=== PATIENT | female | born 1985 | race African-American/Black ===

== ENCOUNTER 2018-02-10 03:07 | Emergency (ER) | payer OTHER ==
[~2018-02-10] VITALS: Ht 167.6 cm; Wt 63.5 kg
[2018-02-10] VITALS (13 sets, daily range): BP systolic 91–121; BP diastolic 47–88
[2018-02-10] MEDS ORDERED: Haloperidol 5mg/ml Inj IM ONE (03:30)
[2018-02-10] MEDS ORDERED: LORazepam Inj 2mg/ml 1ml IM ONE (03:30)
[2018-02-10 04:16] LABS: HEMATOCRIT 36.6 % (42.0-52.0); HEMOGLOBIN 12.7 G/DL (14.2-18.0); MEAN CORPUSCULAR VOLUME 86 FL (80-99); PLATELET COUNT 252 K/UL (150-450); RED BLOOD COUNT 4.25 M/UL (4.70-6.10); RED CELL DISTRIBUTION WIDTH 12.5 % (11.6-14.8); WHITE BLOOD COUNT 10.8 K/UL (4.8-10.8)
[2018-02-10 04:30] LABS: ALANINE AMINOTRANSFERASE 14 U/L (12-78); ALBUMIN 3.9 G/DL (3.4-5.0); ALBUMIN/GLOBULIN RATIO 0.9 (1.0-2.7); ALKALINE PHOSPHATASE 89 U/L (46-116); ANION GAP 15 mmol/L (5-15); ASPARTATE AMINO TRANSFERASE 21 U/L (15-37); BILIRUBIN,TOTAL 0.3 MG/DL (0.2-1.0); BLOOD UREA NITROGEN 12 mg/dL (7-18); CALCIUM 9.3 MG/DL (8.5-10.1); CARBON DIOXIDE 22 MMOL/L (21-32); CHLORIDE 104 MMOL/L (98-107); CREATININE 1.1 MG/DL (0.55-1.30); SODIUM 140 MMOL/L (136-145)
[2018-02-10 04:30] LABS: APPEARANCE,URINE CLEAR; BILIRUBIN, URINE NEGATIVE (NEGATIVE); COLOR,URINE PALE YELLOW; GLUCOSE, URINE (UA) 4+ (NEGATIVE); KETONES,URINE 4+ (NEGATIVE); LEUKOCYTE ESTERASE ,URINE 2+ (NEGATIVE); NITRITE,URINE NEGATIVE (NEGATIVE); PH,URINE 5 (4.5-8.0); PROTEIN,URINE 2+ (NEGATIVE); UROBILINOGEN,URINE NORMAL MG/DL (0.0-1.0)
[2018-02-10 04:33] LABS: POTASSIUM 2.7 MMOL/L (3.5-5.1)
[2018-02-10] MEDS ORDERED: LORazepam Inj 2mg/ml 1ml IV ONE (05:00)
--- NOTE | 2018-02-10 06:24 | Emergency Room Report ---
History of Present Illness General Chief Complaint: Behavioral Complaint Source: Patient, EMS Present Illness HPI Is a 33-year-old female with a psych history. She presents as altered mental status and aggressive bizarre behavior. Per EMS, neighbor call 911 because she was yelling and screaming. There was a "boyfriend" at the scene who doesn't even know her name. She laid on calmed down and said that she spells gun Depakote and Zyprexa but has not been taking it. She was admitted to a psychiatric unit few months ago in [place]. History is limited in patient because of her agitation. Initially she came in as a [place] with police restraint Allergies: Coded Allergies: No Known Allergies (Unverified , 02/10/18) Patient History Past Medical History: see triage record, old chart reviewed, psych hx Past Surgical History: other Pertinent Family History: none Social History: Denies: smoking, alcohol use Now: No Immunizations: other Reviewed Nursing Documentation: PMH: Agreed; PSxH: Agreed Nursing Documentation-PMH Past Medical History: No Stated History Review of Systems All Other Systems: limited - is limited secondary to pt's condition Physical Exam Vital Signs Date Time Temp Pulse Resp B/P (MAP) Pulse Ox O2 Delivery O2 Flow Rate FiO2 02/10/18 03:02 98.0 150 20 146/87 96 Room Air 98.1 tachycardia Sp02 EP Interpretation: reviewed, normal General Appearance: well appearing, no apparent distress, other - agitated Head: normocephalic, atraumatic Eyes: bilateral eye PERRL, bilateral eye EOMI ENT: hearing grossly normal, normal pharynx Neck: full range of motion, supple, no meningismus Respiratory: chest non-tender, lungs clear, normal breath sounds Cardiovascular #1: regular rate, rhythm, no murmur Gastrointestinal: normal bowel sounds, non tender, no mass, no organomegaly, no bruit, non-distended Musculoskeletal: back normal, gait/station normal, normal range of motion Psychiatric: other - agitated, yelling Skin: warm/dry Medical Decision Making Restraint Attestation I, Amarjit Lamar MD, have personally evaluated this patient. Laboratory tests have been reviewed and addressed accordingly. The patient is deemed to present a danger to themselves and/or others. This is based on the exam, history ( provided by patient, EMS/[employer] and/or family) and observed or reported behavior. Attempts for non-invasive measures have been considered and/or attempted, however, have been futile. It is in the best interest of the nursing staff, the patient, and others involved in this patient's care that behavioral restraints be applied. Patient evaluation reveals the following:pt is calm and sleeping comfortably. Diagnostic Impression: Primary Impression: Psychosis Qualified Codes: F23 - Brief psychotic disorder ER Course Patient with psychosis. Restraint initiated but able to be removed. heart rate normalized. Her hypokalemia is probably secondary to hyperventilation. Will reassess when she is more awake. I will sign this patient out to Dr. Vera. Lab Results Impression labs with hypokalemia Last Vital Signs Date Time Temp Pulse Resp B/P (MAP) Pulse Ox O2 Delivery O2 Flow Rate FiO2 02/10/18 06:13 98.4 94 16 101/66 100 Room Air 98.4 Status: improved Condition: Stable Referrals: NOT CHOSEN [facility]/,REFERRING (PCP) AMARJIT LAMAR M.D. Feb 10, 2018 06:24
[2018-02-10 07:38] LABS: ANION GAP 12 mmol/L (5-15); BLOOD UREA NITROGEN 9 mg/dL (7-18); CALCIUM 8.3 MG/DL (8.5-10.1); CARBON DIOXIDE 25 MMOL/L (21-32); CHLORIDE 106 MMOL/L (98-107); CREATININE 0.8 MG/DL (0.55-1.30); POTASSIUM 3.4 MMOL/L (3.5-5.1); SODIUM 143 MMOL/L (136-145)
--- NOTE | 2018-02-10 14:26 | Emergency Room Report ---
Physical Exam Vital Signs Date Time Temp Pulse Resp B/P (MAP) Pulse Ox O2 Delivery O2 Flow Rate FiO2 02/10/18 03:02 98.0 150 20 146/87 96 Room Air 98.1 Medical Decision Making Diagnostic Impression: Primary Impression: Psychosis Qualified Codes: F29 - Unspecified psychosis not due to a substance or known physiological condition ER Course Hospital Course 33 yo F presents to ED with agitated behavior. Clinical course Patient initially seen and evaluated by Dr Lamar; please see his note for full history and physical Labs reviewed-K 2.7, no leukocytosis, hemoglobin/hematocrit stable, tox panel negative K repleted Patient was given sedation last night. Patient slept during the day. Is now more awake alert oriented. Family at bedside. Patient denies any drug use. Episode could be related to some transient psychosis, possible drug use. She is not a danger to herself or others at this time. Patient can be safely discharged to home. No history of mental illness. We will give mental health referrals i. I feel this is a highly complex case requiring extensive working including EKG/Rhythm strip, Xray/CT/US, Blood/urine lab work, repeat exams while in ED, and administration of strong opiates/narcotics for pain control, admission to hospital or close patient follow up. Diagnosis - psychosis Stable and discharged to home. Followup with PMD. Return to ED if symptoms recur or worsen Labs Test 02/10/18 04:00 02/10/18 04:20 02/10/18 06:57 White Blood Count 10.8 K/UL (4.8-10.8) Red Blood Count 4.25 M/UL (4.70-6.10) Hemoglobin 12.7 G/DL (14.2-18.0) Hematocrit 36.6 % (42.0-52.0) Mean Corpuscular Volume 86 FL (80-99) Mean Corpuscular Hemoglobin 29.8 PG (27.0-31.0) Mean Corpuscular Hemoglobin Concent 34.5 G/DL (32.0-36.0) Red Cell Distribution Width 12.5 % (11.6-14.8) Platelet Count 252 K/UL (150-450) Mean Platelet Volume 7.8 FL (6.5-10.1) Neutrophils (%) (Auto) % (45.0-75.0) Lymphocytes (%) (Auto) % (20.0-45.0) Monocytes (%) (Auto) % (1.0-10.0) Eosinophils (%) (Auto) % (0.0-3.0) Basophils (%) (Auto) % (0.0-2.0) Sodium Level 140 MMOL/L (136-145) 143 MMOL/L (136-145) Potassium Level 2.7 MMOL/L (3.5-5.1) 3.4 MMOL/L (3.5-5.1) Chloride Level 104 MMOL/L (98-107) 106 MMOL/L (98-107) Carbon Dioxide Level 22 MMOL/L (21-32) 25 MMOL/L (21-32) Anion Gap 15 mmol/L (5-15) 12 mmol/L (5-15) Blood Urea Nitrogen 12 mg/dL (7-18) 9 mg/dL (7-18) Creatinine 1.1 MG/DL (0.55-1.30) 0.8 MG/DL (0.55-1.30) Estimat Glomerular Filtration Rate > 60 mL/min (>60) > 60 mL/min (>60) Glucose Level 265 MG/DL (74-106) 97 MG/DL (74-106) Calcium Level 9.3 MG/DL (8.5-10.1) 8.3 MG/DL (8.5-10.1) Total Bilirubin 0.3 MG/DL (0.2-1.0) Aspartate Amino Transf (AST/SGOT) 21 U/L (15-37) Alanine Aminotransferase (ALT/SGPT) 14 U/L (12-78) Alkaline Phosphatase 89 U/L (46-116) Total Protein 8.3 G/DL (6.4-8.2) Albumin 3.9 G/DL (3.4-5.0) Globulin 4.4 g/dL Albumin/Globulin Ratio 0.9 (1.0-2.7) Salicylates Level 1.1 ug/mL (2.8-20) Acetaminophen Level < 2 MCG/ML (10-30) Serum Alcohol < 3 mg/dL Urine Color Pale yellow Urine Appearance Clear Urine pH 5 (4.5-8.0) Urine Specific [place] 1.025 (1.005-1.035) Urine Protein 2+ (NEGATIVE) Urine Glucose (UA) 4+ (NEGATIVE) Urine Ketones 4+ (NEGATIVE) Urine Occult Blood Negative (NEGATIVE) Urine Nitrite Negative (NEGATIVE) Urine Bilirubin Negative (NEGATIVE) Urine Urobilinogen Normal MG/DL (0.0-1.0) Urine Leukocyte Esterase 2+ (NEGATIVE) Urine RBC 0-2 /HPF (0 - 0) Urine WBC 2-4 /HPF (0 - 0) Urine Squamous Epithelial Cells Moderate /LPF (NONE/OCC) Urine Bacteria Few /HPF (NONE) Urine HCG, Qualitative Negative (NEGATIVE) Urine Opiates Screen Negative (NEGATIVE) Urine Barbiturates Screen Negative (NEGATIVE) Phencyclidine (PCP) Screen Negative (NEGATIVE) Urine Amphetamines Screen Negative (NEGATIVE) Urine Benzodiazepines Screen Negative (NEGATIVE) Urine Cocaine Screen Negative (NEGATIVE) Urine Marijuana (THC) Screen Negative (NEGATIVE) (1) Psychosis Last Vital Signs Date Time Temp Pulse Resp B/P (MAP) Pulse Ox O2 Delivery O2 Flow Rate FiO2 02/10/18 13:29 98.0 80 14 120/85 100 Room Air 208.4 Status: improved Disposition: HOME, SELF-CARE Condition: Stable Referrals: [facility],REFERRING (PCP) Patient Instructions: Self-Destructive Behavior Toby Vera MD Feb 10, 2018 14:26
== END 2018-02-10 13:32 | disposition home or self-care (01) ==
LOC: EDBD 03:07 → EDSEX 03:07 → EMR 06:02
DX: F29 Unspecified psychosis not due to a substance or known physiological condition (principal)
CPT/HCPCS: 36415; 80048; 80053; 80307; 80329; 81003; 81025; 85025; 99284; J1630; J8499

== ENCOUNTER 2018-04-25 14:02 | Emergency (ER) | payer OTHER ==
[~2018-04-25] VITALS: Ht 149.9 cm; Wt 59.0 kg
[2018-04-25 14:35] VITALS: BP 135/66
--- NOTE | 2018-04-25 15:23 | Emergency Room Report ---
History of Present Illness General Chief Complaint: Medication Refill Source: Patient Present Illness HPI 33 YO Female presents to the ED requesting to be placed back onto psychiatric medications that she has not been on for 4 years. Pt reports having stress with relationship and wants alternative housing as well. pt. denies physical abuse and reports that she feels safe. Denies SI/HI, delusions, hallucinations, PSA. Patient reports previous psychiatric over 4 years ago. Pt. reports she does not follow up. denies pain or other symptoms at this time. Allergies: Coded Allergies: No Known Allergies (Unverified , 02/10/18) Patient History Past Medical History: see triage record, psych hx Past Surgical History: none Pertinent Family History: none Last Menstrual Period: now Now: No Reviewed Nursing Documentation: PMH: Agreed; PSxH: Agreed Nursing Documentation-PMH Past Medical History: No History, Except For History Of Psychiatric Problem: Yes - anxiety, depression, bipolar, schizophrenia Review of Systems All Other Systems: negative except mentioned in HPI Physical Exam Vital Signs Date Time Temp Pulse Resp B/P (MAP) Pulse Ox O2 Delivery O2 Flow Rate FiO2 04/25/18 13:58 100.2 100 18 135/66 100 Room Air 100.2 Sp02 EP Interpretation: reviewed, normal General Appearance: no apparent distress, alert, GCS 15, non-toxic Head: normocephalic, atraumatic Eyes: bilateral eye normal inspection, bilateral eye PERRL ENT: hearing grossly normal, normal voice Neck: full range of motion Respiratory: lungs clear, normal breath sounds, speaking full sentences Cardiovascular #1: regular rate, rhythm Gastrointestinal: non tender, soft Musculoskeletal: back normal, gait/station normal, normal range of motion, non- tender Neurologic: alert, oriented x3, responsive, motor strength/tone normal, sensory intact, normal gait, speech normal, grossly normal Psychiatric: judgement/insight normal Skin: normal color, no rash, warm/dry, well hydrated Lymphatic: no adenopathy Medical Decision Making PA Attestation Dr. nieto is my supervising Physician whom patient management has been discussed with. Diagnostic Impression: Primary Impression: Encounter for medication refill ER Course 33 YO Female presents to the ED requesting to be placed back onto psychiatric medications that she has not been on for 4 years. Pt reports having stress with relationship and wants alternative housing as well. pt. denies physical abuse and reports that she feels safe. Denies SI/HI, delusions, hallucinations, PSA. Patient reports previous psychiatric over 4 years ago. Pt. reports she does not follow up. denies pain or other symptoms at this time. Pt. does not remember the names of the psychiatric medications that she was on in the past. Ddx considered but are not limited to: drug seeking, OD, SI/HI, psychosis, betito just to name a few. Vital signs: are WNL, pt. is afebrile H&PE are most consistent with need for medication refill. ORDERS: none required at this time, the diagnosis is clinical ED INTERVENTIONS: None required at this time. - Pt. is given list of resources as well as map directions how to get to them via free bus transportation. Pt. is also given [facility] mental health urgent care and list of other near by mental health clinics for follow up. -I discussed with this patient that since she has been off of her medications for almost 4 years she needs to be reevaluated by a psychiatric professional and have his medication management as well. DISCHARGE: At this time pt. is stable for d/c to home. Will provide printed patient care instructions, and any necessary prescriptions. Care plan and follow up instructions have been discussed with the patient prior to discharge. Last Vital Signs Date Time Temp Pulse Resp B/P (MAP) Pulse Ox O2 Delivery O2 Flow Rate FiO2 04/25/18 14:35 98.3 76 18 135/66 100 Room Air 98.3 Disposition: HOME, SELF-CARE Condition: Stable Referrals: [facility],REFERRING (PCP) Patient Instructions: Medical Screening Exam Additional Instructions: Take medications as directed. Follow up with a Mental Health Specialist/ Psychiatrist in 3 days, even if your symptoms have resolved. --Please review [facility]ENT [facility] resource information provided Return sooner to ED if new symptoms occur, or current symptoms become worse. - Please note that this Emergency Department Report was dictated using [employer] typist technology software, occasionally this can lead to erroneous entry secondary to interpretation by the dictation equipment. Marialuisa Still Apr 25, 2018 15:23
[2018-04-25 15:40] VITALS: BP 135/66
== END 2018-04-25 16:20 | disposition home or self-care (01) ==
LOC: EDBD 14:02 → EMR 14:22
DX: Z76.0 Encounter for issue of repeat prescription (principal)
CPT/HCPCS: 99282